=== PATIENT | male | born 1955 | race Caucasian/White ===

== ENCOUNTER 2016-10-18 16:09 | Inpatient (IN) | payer OTHER ==
[~2016-10-18] VITALS: Ht 172.7 cm; Wt 100.7 kg
--- NOTE | ~2016-10-18 | WRIGHTHP ---
[place], [place] PATIENT HISTORY AND PHYSICAL EXAM NAME: EMILY LOWE MERGED WITH [facility] #: [id number] UNIT #: [id number] ROOM: [place] [address] DOCTOR: KARO JARAMILLO DO BIRTHDATE: [birth year] DOS: 10/18/2016 PRIMARY CARE PHYSICIAN: Dr. Zulma Sherwood. The patient was seen and evaluated with the resident on 10/19/2016. Please see the resident's note for further details. ASSESSMENT: 1. Acute alcohol intoxication. 2. Alcohol dependence. 3. Fall with closed head injury. 4. Recent diagnosis of subarachnoid hemorrhage in 08/2016. 5. History of cirrhosis secondary to alcohol. 6. Diabetes mellitus type 2. 7. History of hepatitis C. 8. Chronic obstructive pulmonary disease. 9. Tobacco abuse. 10. History of esophageal varices. 11. Echocardiogram in April 2016 measured a normal ejection fraction. PLAN: The patient is no longer intoxicated. He is not confused or has any other signs of delirium tremens. He will be discharged today. He is to follow up with Dr. Sherwood. KARO JARAMILLO DO CM:HISPHYS:PATIENT HISTORY AND PHYSICAL EXAMINATION [id number] KARO JARAMILLO DO 10/19/16 1528 interface
[~2016-10-18 16:09] MED LIST: 'PARAFON FORTE500 M1 PO; ALBUTEROL0.09 MG/A2 IH; ALBUTEROL2.5 MG/0.5 INH; ALDACTONE50 M1 PO; ALDACTONE50 MG PO; ALLERGY RELIEF10 M1 PO; AMBIEN10 M1 PO; AMBIEN10 MG PO; AMOXICILLIN500 MG PO; ANTIVERT/2525 MG PO; ATIVAN1 MG PO; AUGMENTIN 875875 MG PO; AVELOX400 MG PO; BUMETANIDE1 MG PO; CHLORDIAZEPOXID25 M1 PO; CLARITIN10 MG PO; FOLIC ACID1 MG PO; INDERAL10 MG PO; INDERAL40 MG PO; LACTULOSE20 GM/30 M PO; LASIX40 MG PO; MEDROL DOSEPAK4 MG PO; MOTRIN800 MG PO; NATURE'S BLEND F1 MG PO; NEXIUM40 MG PO; POTASSIUM CHLO20 ME3 PO; POTASSIUM20 MEQ PO; PRILOSEC20 MG PO; PROPRANOLOL HCL10 MG PO; PROTONIX40 MG PO; QVAR0.08 MG/AC INH; THERA TABS1 TAB PO; TOBRADEX 0.1%-0.5 ML OPH; TORADOL10 MG PO; TYLENOL325 M1 PO; VENTOLIN H0.09 MG/AC INH; VICODIN ES 7501 TAB; VITAMIN B-11 TAB PO; ZITHROMAX Z PA250 MG PO
[2016-10-18 16:14] VITALS: BP 151/95
[2016-10-18 17:03] LABS: BASO # 0.1 10*3/uL (0.0-0.1); EOS # 0.1 10*3/uL (0.0-0.4); EOS % 2.5 % (1.0-4.0); HEMATOCRIT 37.4 % (42.0-52.0); HEMOGLOBIN 12.9 g/dl (14.0-18.0); MEAN CELL VOLUME 102.2 fl (80.0-94.0); MEAN CORPUSCULAR HGB 35.2 pg (27.0-31.0); MEAN CORPUSCULAR HGB CONC 34.5 g/dl (33.0-37.0); MEAN PLATELET VOLUME 10.7 fl (9.6-12.3); MONO # 0.7 10*3/uL (0.1-1.0); MONO % 13.6 % (3.0-9.0); NEUT # 3.2 10*3/uL (2.3-7.9); NEUT % 62.7 % (47.0-73.0); PLATELET COUNT AUTOMATED 108 10*3/uL (130-400); RED BLOOD COUNT 3.66 10*6/uL (4.50-5.90); RED CELL DISTRI WIDTH 14.7 % (0-14.5); WHITE BLOOD COUNT 5.1 10*3/uL (4.8-10.8)
[2016-10-18 17:16] LABS: BUN 5 mg/dl (7-24); CARBON DIOXIDE 25 mmol/L (21-32); CHLORIDE 109 mmol/L (98-107); EST GLOM FILT AFRICAN AMERICAN > 60 ml/min; GLUCOSE 136 mg/dL (65-99); POTASSIUM 3.6 mmol/L (3.5-5.1); SODIUM 143 mmol/L (136-145)
[2016-10-18 17:20] LABS: BILIRUBIN NEGATIVE (NEGATIVE); BLOOD 1+ (NEGATIVE); CLARITY SL CLOUDY (CLEAR); COLOR YELLOW (YELLOW); GLUCOSE NEGATIVE (NEGATIVE); KETONE NEGATIVE (NEGATIVE); LEUKO ESTERASE NEGATIVE (NEGATIVE); NITRITE NEGATIVE (NEGATIVE); PROTEIN TRACE (NEGATIVE); SPECIFIC GRAVITY <= 1.005 (1.005-1.030); UROBILINOGEN 0.2 E.U./dl (0.2-1.0)
[2016-10-18 17:26] LABS: BACTERIA 1+; EPITHELIAL CELLS 0-2; URINE REFLEX COMMENT YES (NO); WBC 0-2 wbc/hpf (0-5)
[2016-10-18 17:28] LABS: URINE AMPHETAMINES < 1000 (1000ng/ml); URINE BARBITURATES < 200 (200ng/ml); URINE COCAINE < 300 (300ng/ml)
[2016-10-18 20:30] VITALS: BP 150/76
[2016-10-18] MEDS ORDERED: METFORMIN500 MG PO (20:36)
[2016-10-18] MEDS ORDERED: DILANTIN100 MG PO (20:38)
[2016-10-19] VITALS: BP 138/82
[2016-10-19 04:00] VITALS: BP 130/72
[2016-10-19 05:56] LABS: ALBUMIN 2.4 gm/dl (3.1-4.5); ALKALINE PHOSPHATASE 197 U/L (45-117); BILIRUBIN, TOTAL 1.7 mg/dl (0.2-1.0); BUN 4 mg/dl (7-24); CARBON DIOXIDE 26 mmol/L (21-32); CHLORIDE 112 mmol/L (98-107); CHOLESTEROL 85 mg/dL (<200); EST GLOM FILT AFRICAN AMERICAN > 60 ml/min; FREE T4 0.86 ng/dl (0.76-1.46); GLUCOSE 96 mg/dL (65-99); HDL CHOLESTEROL 35 mg/dl (40-60); LDL CHOLESTEROL 27 mg/dL (9-159); MAGNESIUM 1.8 mg/dL (1.5-2.1); PHOSPHOROUS 3.1 mg/dL (2.5-4.9); POTASSIUM 3.9 mmol/L (3.5-5.1); SGOT/AST 176 IU/L (3-35); SGPT/ALT 56 U/L (12-78); SODIUM 147 mmol/L (136-145); TRIGLYCERIDES 115 mg/dl (<150); VLDL CHOLESTEROL 23 mg/dL (6-40)
[2016-10-19 06:19] LABS: BASO % 1.4 % (0.0-1.0); EOS # 0.1 10*3/uL (0.0-0.4); EOS % 3.8 % (1.0-4.0); HEMATOCRIT 34.8 % (42.0-52.0); HEMOGLOBIN 11.8 g/dl (14.0-18.0); LYMPH # 0.5 10*3/uL (1.3-4.4); LYMPH % 23.1 % (27.0-41.0); MEAN CELL VOLUME 103.3 fl (80.0-94.0); MEAN CORPUSCULAR HGB CONC 33.9 g/dl (33.0-37.0); MEAN PLATELET VOLUME 11.1 fl (9.6-12.3); MONO # 0.4 10*3/uL (0.1-1.0); MONO % 18.9 % (3.0-9.0); NEUT # 1.1 10*3/uL (2.3-7.9); NEUT % 52.8 % (47.0-73.0); RED BLOOD COUNT 3.37 10*6/uL (4.50-5.90); RED CELL DISTRI WIDTH 14.7 % (0-14.5); WHITE BLOOD COUNT 2.1 10*3/uL (4.8-10.8)
[2016-10-19 06:23] LABS: HEMOGLOBIN A1c 4.8 % (4.8-5.6); PLATELET COUNT AUTOMATED 67 10*3/uL (130-400)
[2016-10-19 06:29] LABS: INTERNATIONAL NORM RATIO 1.3 (2.0-3.5); PROTHROMBIN TIME 13.5 SECONDS (9.0-12.4)
[2016-10-19 07:12] LABS: FOLIC ACID 14.8 ng/mL (>5.38); VITAMIN D, 25-HYDROXY 31.1 ng/mL (30-100)
[2016-10-19 08:00] VITALS: BP 137/66
== END 2016-10-19 12:05 | disposition home or self-care (01) | DRG 896 ==
LOC: ED 16:09 → EDHOLD 18:56 → ICCU 18:56 → 5E 19:28 → ICCU 20:07
PROVIDERS: Emergency Medicine; Internal Medicine
DX: F10.220 Alcohol dependence with intoxication, uncomplicated (principal); E43 Unspecified severe protein-calorie malnutrition; I50.32 Chronic diastolic (congestive) heart failure; K70.31 Alcoholic cirrhosis of liver with ascites; S09.90XA Unspecified injury of head, initial encounter; J44.9 Chronic obstructive pulmonary disease, unspecified; E11.65 Type 2 diabetes mellitus with hyperglycemia; G47.00 Insomnia, unspecified; D53.9 Nutritional anemia, unspecified; D72.810 Lymphocytopenia; F17.200 Nicotine dependence, unspecified, uncomplicated; E66.09 Other obesity due to excess calories; R29.6 Repeated falls; Y90.9 Presence of alcohol in blood, level not specified; W18.39XA Other fall on same level, initial encounter; Y93.89 Activity, other specified; Y92.89 Other specified places as the place of occurrence of the external cause; Y99.8 Other external cause status; Z68.33 Body mass index [BMI] 33.0-33.9, adult

== ENCOUNTER → 2016-11-14 | Outpatient (CLI) | payer OTHER ==
[~2016-11-14] MED LIST changes: +DILANTIN100 MG PO; +METFORMIN500 MG PO
[2016-11-14 12:03] LABS: BASO % 0.8 % (0.0-1.0); EOS # 0.1 10*3/uL (0.0-0.4); EOS % 1.6 % (1.0-4.0); HEMATOCRIT 38.1 % (42.0-52.0); HEMOGLOBIN 13.2 g/dl (14.0-18.0); LYMPH # 0.7 10*3/uL (1.3-4.4); LYMPH % 13.5 % (27.0-41.0); MEAN CELL VOLUME 102.7 fl (80.0-94.0); MEAN CORPUSCULAR HGB 35.6 pg (27.0-31.0); MEAN CORPUSCULAR HGB CONC 34.6 g/dl (33.0-37.0); MEAN PLATELET VOLUME 10.7 fl (9.6-12.3); MONO # 0.6 10*3/uL (0.1-1.0); MONO % 12.5 % (3.0-9.0); NEUT # 3.5 10*3/uL (2.3-7.9); NEUT % 71.4 % (47.0-73.0); PLATELET COUNT AUTOMATED 126 10*3/uL (130-400); RED BLOOD COUNT 3.71 10*6/uL (4.50-5.90); RED CELL DISTRI WIDTH 14.4 % (0-14.5); WHITE BLOOD COUNT 4.9 10*3/uL (4.8-10.8)
[2016-11-14 12:35] LABS: CHLORIDE 109 mmol/L (98-107); POTASSIUM 3.9 mmol/L (3.5-5.1); SODIUM 141 mmol/L (136-145)
[2016-11-14 12:40] LABS: INTERNATIONAL NORM RATIO 1.4 (2.0-3.5); PROTHROMBIN TIME 14.9 SECONDS (9.0-12.4)
[2016-11-14 12:43] LABS: ALBUMIN 2.6 gm/dl (3.1-4.5); ALKALINE PHOSPHATASE 190 U/L (45-117); BILIRUBIN, TOTAL 2.2 mg/dl (0.2-1.0); BUN 11 mg/dl (7-24); CARBON DIOXIDE 24 mmol/L (21-32); EST GLOM FILT AFRICAN AMERICAN > 60 ml/min; GLUCOSE 133 mg/dL (65-99); SGOT/AST 61 IU/L (3-35); SGPT/ALT 26 U/L (12-78); TOTAL PROTEIN 6.8 gm/dL (6.4-8.2)
== END | disposition home or self-care (01) ==
LOC: LAB 11:38
DX: C22.0 Liver cell carcinoma (principal)

== ENCOUNTER → 2016-12-21 | Outpatient (CLI) | payer OTHER ==
[2016-12-21 13:02] LABS: BASO % 0.7 % (0.0-1.0); EOS # 0.1 10*3/uL (0.0-0.4); EOS % 1.3 % (1.0-4.0); LYMPH # 0.9 10*3/uL (1.3-4.4); LYMPH % 15.7 % (27.0-41.0); MEAN CORPUSCULAR HGB 35.2 pg (27.0-31.0); MEAN CORPUSCULAR HGB CONC 34.1 g/dl (33.0-37.0); MEAN PLATELET VOLUME 10.9 fl (9.6-12.3); MONO # 0.6 10*3/uL (0.1-1.0); MONO % 10.7 % (3.0-9.0); NEUT # 3.9 10*3/uL (2.3-7.9); NEUT % 71.4 % (47.0-73.0); PLATELET COUNT AUTOMATED 105 10*3/uL (130-400); RED BLOOD COUNT 3.98 10*6/uL (4.50-5.90); RED CELL DISTRI WIDTH 15.3 % (0-14.5); WHITE BLOOD COUNT 5.5 10*3/uL (4.8-10.8)
[2016-12-21 13:30] LABS: INTERNATIONAL NORM RATIO 1.4 (2.0-3.5); PROTHROMBIN TIME 15.6 SECONDS (9.0-12.4)
[2016-12-21 13:32] LABS: ALBUMIN 2.8 gm/dl (3.1-4.5); BILIRUBIN, TOTAL 3.5 mg/dl (0.2-1.0); BUN 10 mg/dl (7-24); CARBON DIOXIDE 27 mmol/L (21-32); CHLORIDE 103 mmol/L (98-107); EST GLOM FILT AFRICAN AMERICAN > 60 ml/min; GLUCOSE 129 mg/dL (65-99); POTASSIUM 4.3 mmol/L (3.5-5.1); SGOT/AST 82 IU/L (3-35); SGPT/ALT 38 U/L (12-78); SODIUM 140 mmol/L (136-145); TOTAL PROTEIN 7.4 gm/dL (6.4-8.2)
[2016-12-21 13:42] LABS: ALKALINE PHOSPHATASE 216 U/L (45-117)
== END | disposition home or self-care (01) ==
LOC: LAB 12:33
PROVIDERS: Nurse Practitioner Adult Health
DX: C22.0 Liver cell carcinoma (principal)

== ENCOUNTER 2017-02-07 11:58 | Inpatient (IN) | payer OTHER ==
[~2017-02-07] VITALS: Ht 170.1 cm; Wt 92.8 kg
--- NOTE | ~2017-02-07 | PR ---
[place], [place] PROGRESS NOTE NAME: EMILY LOWE UNIT #: [id number] ROOM: 503 DOCTOR: LUIS ALBERTO GARIBAY MD BIRTHDATE: [birth year] DOS: 02/08/2017 SUBJECTIVE: The patient was seen in the Cardiology Department just prior to his stress test. He is a 61-year-old man who presented to the hospital with chest pressure that developed about a day and a half prior to his admission and has persisted since admission. The pain has pleuritic characteristics, was not associated with any acute EKG changes or elevation in troponin. The patient does have a history of DVT with pulmonary emboli in the distant past. Recently, he has been noted to have cirrhosis with ascites and also has liver cancer, which is being evaluated at the [facility]. This has not yet been treated. PHYSICAL EXAMINATION: VITAL SIGNS: Today, his pulse is 78 and regular, blood pressure is 120/70, temperature is 99.4. He weighs 92.0.8 kilograms with a body mass index of 32.1. HEENT: Normocephalic, atraumatic. Extraocular muscles are intact. Sclerae are clear. Pupils are equal, round and reactive to light. The oral mucosa is moist. Tongue is midline. NECK: Supple. He has no jugular distention. Carotids are full. LUNGS: Respirations are unlabored. Chest is clear to auscultation and percussion. HEART: Has regular rhythm with an S4 gallop. No S3. ABDOMEN: Distended with a slight fluid wave. EXTREMITIES: Showed no edema. There were no palpable cords or Homans sign. IMPRESSION: 1. Atypical chest pain, most likely this is noncardiac in origin. 2. History of cirrhosis from alcohol abuse. The patient has been abstinent of alcohol for about a month. 3. History of deep venous thrombosis in the distant past with pulmonary emboli. 4. History of liver cancer. PLAN: We will proceed with pharmacologic stress test to make sure that he does not have coronary artery disease as a cause for his chest pain. Further evaluation of his chest pain and ascites will be per his primary physician's assuming his stress test is normal. I thank the hospitalist physicians for asking our advice regarding his care. [place], [place] PROGRESS NOTE NAME: EMILY LOWE UNIT #: [id number] ROOM: 503 DOCTOR: LUIS ALBERTO GARIBAY MD BIRTHDATE: [birth year] LUIS ALBERTO GARIBAY MD CM:PNTRANS [id number] LUIS ALBERTO GARIBAY MD 02/09/17 0103 interface
[2017-02-07 12:10] VITALS: BP 130/84
[2017-02-07 12:28] LABS: BASO # 0.1 10*3/uL (0.0-0.1); BASO % 0.6 % (0.0-1.0); EOS % 0.1 % (1.0-4.0); HEMATOCRIT 37.2 % (42.0-52.0); HEMOGLOBIN 12.5 g/dl (14.0-18.0); LYMPH # 0.5 10*3/uL (1.3-4.4); LYMPH % 6.8 % (27.0-41.0); MEAN CELL VOLUME 104.5 fl (80.0-94.0); MEAN CORPUSCULAR HGB 35.1 pg (27.0-31.0); MEAN CORPUSCULAR HGB CONC 33.6 g/dl (33.0-37.0); MEAN PLATELET VOLUME 11.2 fl (9.6-12.3); MONO % 12.4 % (3.0-9.0); NEUT # 6.3 10*3/uL (2.3-7.9); NEUT % 79.5 % (47.0-73.0); PLATELET COUNT AUTOMATED 104 10*3/uL (130-400); RED BLOOD COUNT 3.56 10*6/uL (4.50-5.90); RED CELL DISTRI WIDTH 17.8 % (0-14.5)
[2017-02-07 12:37] LABS: ACT PARTIAL THROMBO TIME 30.5 SECONDS (20.8-31.5); INTERNATIONAL NORM RATIO 1.7 (2.0-3.5)
[2017-02-07 12:45] LABS: ALBUMIN 2.3 gm/dl (3.1-4.5); ALKALINE PHOSPHATASE 171 U/L (45-117); BUN 9 mg/dl (7-24); CHLORIDE 99 mmol/L (98-107); CREATININE 1.16 mg/dL (0.70-1.30); MAGNESIUM 1.9 mg/dL (1.5-2.1); POTASSIUM 4.1 mmol/L (3.5-5.1); SGOT/AST 71 IU/L (3-35); SGPT/ALT 28 U/L (12-78); SODIUM 132 mmol/L (136-145); TOTAL PROTEIN 6.9 gm/dL (6.4-8.2)
[2017-02-07 12:47] LABS: TROPONIN I < 0.015 ng/ml (<0.045)
[2017-02-07 14:17] VITALS: BP 126/66
[2017-02-07 15:20] VITALS: BP 129/76
[2017-02-07 16:00] VITALS: BP 144/71
[2017-02-07 16:45] VITALS: BP 144/71
[2017-02-07] MEDS ORDERED: LASIX20 MG PO (17:39)
[2017-02-07 20:00] VITALS: BP 126/60
[2017-02-08] VITALS: BP 130/69
[2017-02-08 06:12] LABS: BASO % 0.5 % (0.0-1.0); EOS # 0.1 10*3/uL (0.0-0.4); EOS % 1.1 % (1.0-4.0); HEMATOCRIT 35.2 % (42.0-52.0); HEMOGLOBIN 11.8 g/dl (14.0-18.0); LYMPH # 0.5 10*3/uL (1.3-4.4); LYMPH % 9.4 % (27.0-41.0); MEAN CELL VOLUME 104.1 fl (80.0-94.0); MEAN CORPUSCULAR HGB 34.9 pg (27.0-31.0); MEAN CORPUSCULAR HGB CONC 33.5 g/dl (33.0-37.0); MEAN PLATELET VOLUME 11.8 fl (9.6-12.3); MONO # 0.9 10*3/uL (0.1-1.0); MONO % 15.5 % (3.0-9.0); NEUT # 4.1 10*3/uL (2.3-7.9); PLATELET COUNT AUTOMATED 87 10*3/uL (130-400); RED BLOOD COUNT 3.38 10*6/uL (4.50-5.90); RED CELL DISTRI WIDTH 17.6 % (0-14.5); WHITE BLOOD COUNT 5.6 10*3/uL (4.8-10.8)
[2017-02-08 06:39] LABS: ALBUMIN 2.1 gm/dl (3.1-4.5); BUN 8 mg/dl (7-24); CHLORIDE 103 mmol/L (98-107); CREATININE 0.85 mg/dL (0.70-1.30); MAGNESIUM 1.7 mg/dL (1.5-2.1); PHOSPHOROUS 1.8 mg/dL (2.5-4.9); POTASSIUM 4.1 mmol/L (3.5-5.1); SGOT/AST 54 IU/L (3-35); SGPT/ALT 23 U/L (12-78); SODIUM 134 mmol/L (136-145); TOTAL PROTEIN 6.2 gm/dL (6.4-8.2)
[2017-02-08 06:41] LABS: ACT PARTIAL THROMBO TIME 31.3 SECONDS (20.8-31.5); INTERNATIONAL NORM RATIO 1.6 (2.0-3.5)
[2017-02-08 06:49] LABS: ALKALINE PHOSPHATASE 156 U/L (45-117); THYROID STIM HORMONE (HS) 0.857 uIU/ml (0.358-4.75)
[2017-02-08 07:38] LABS: VITAMIN D, 25-HYDROXY 36.5 ng/mL (30-100)
[2017-02-08 08:00] VITALS: BP 116/62; BP 120/70
[2017-02-08 12:00] VITALS: BP 112/60
[2017-02-08 16:00] VITALS: BP 96/50
[2017-02-08] MEDS ORDERED: K-PHOS500 MG PO (16:46)
== END 2017-02-08 16:29 | disposition home or self-care (01) | DRG 193 ==
LOC: ED 11:58 → EDHOLD 13:14 → 5E 13:14 → EDHOLD 13:44 → 5E 15:29
PROVIDERS: Internal Medicine; ADMIT Emergency Medicine
DX: R09.1 Pleurisy (principal); E43 Unspecified severe protein-calorie malnutrition; I50.32 Chronic diastolic (congestive) heart failure; D68.9 Coagulation defect, unspecified; C22.9 Malignant neoplasm of liver, not specified as primary or secondary; E87.1 Hypo-osmolality and hyponatremia; D69.6 Thrombocytopenia, unspecified; E11.65 Type 2 diabetes mellitus with hyperglycemia; R07.89 Other chest pain; F41.9 Anxiety disorder, unspecified; K21.9 Gastro-esophageal reflux disease without esophagitis; J44.9 Chronic obstructive pulmonary disease, unspecified; K70.31 Alcoholic cirrhosis of liver with ascites; F10.20 Alcohol dependence, uncomplicated; B18.2 Chronic viral hepatitis C; D53.9 Nutritional anemia, unspecified; G47.00 Insomnia, unspecified; Z87.891 Personal history of nicotine dependence; Z79.899 Other long term (current) drug therapy; Z86.718 Personal history of other venous thrombosis and embolism; Z86.711 Personal history of pulmonary embolism; Z88.8 Allergy status to other drugs, medicaments and biological substances; Z82.49 Family history of ischemic heart disease and other diseases of the circulatory system; Z80.8 Family history of malignant neoplasm of other organs or systems; Z83.3 Family history of diabetes mellitus; Z81.1 Family history of alcohol abuse and dependence

== ENCOUNTER → 2017-03-28 | Outpatient (CLI) | payer OTHER ==
[~2017-03-28] MED LIST changes: +K-PHOS500 MG PO; +LASIX20 MG PO
[2017-03-28 13:05] LABS: ACT PARTIAL THROMBO TIME 29.8 SECONDS (20.8-31.5); INTERNATIONAL NORM RATIO 1.5 (2.0-3.5)
[2017-03-28 14:55] LABS: BODY FLUID WBC 81 /uL
[2017-03-28 15:47] LABS: BF LYMPHOCYTES 21 %; BF MACROPHAGES 43 %; BF MESOTHELIALS 25 %; BF NEUTROPHILS 11 %
== END | disposition home or self-care (01) ==
LOC: LAB 00:47 → EDSTATUS 13:00
PROVIDERS: Internal Medicine
DX: C22.0 Liver cell carcinoma (principal); K70.31 Alcoholic cirrhosis of liver with ascites; B18.2 Chronic viral hepatitis C; E11.9 Type 2 diabetes mellitus without complications; K21.9 Gastro-esophageal reflux disease without esophagitis; F51.04 Psychophysiologic insomnia; E53.8 Deficiency of other specified B group vitamins

== ENCOUNTER → 2017-05-06 | Outpatient (CLI) | payer OTHER | END | disposition home or self-care (01) | LOC: EDSTATUS 11:00 | DX: R07.89 Other chest pain (principal); R18.8 Other ascites; J44.9 Chronic obstructive pulmonary disease, unspecified; Z87.09 Personal history of other diseases of the respiratory system; Z87.19 Personal history of other diseases of the digestive system; Z87.891 Personal history of nicotine dependence ==

== ENCOUNTER → 2017-05-16 | Outpatient (CLI) | payer OTHER ==
[2017-05-16 12:45] LABS: ACT PARTIAL THROMBO TIME 31.5 SECONDS (20.8-31.5); INTERNATIONAL NORM RATIO 1.5 (2.0-3.5)
== END | disposition home or self-care (01) ==
LOC: LAB 01:51 → EDSTATUS 13:00
PROVIDERS: Internal Medicine
DX: K70.31 Alcoholic cirrhosis of liver with ascites (principal)

== ENCOUNTER → 2017-05-24 | Outpatient (CLI) | payer OTHER ==
[~2017-05-24] MED LIST changes: +AMBIEN5 MG PO; +PRILOSEC20 M1 PO; +[UNRECOGNIZED DRUG - OTHER]
== END | disposition home or self-care (01) ==
LOC: EDSTATUS 11:00
DX: K70.31 Alcoholic cirrhosis of liver with ascites (principal)

== ENCOUNTER → 2017-05-31 | Day surgery (SDC) | payer OTHER ==
[2017-05-31 11:56] VITALS: BP 132/88
== END | disposition home or self-care (01) ==
LOC: EDSTATUS 11:00
DX: R18.8 Other ascites (principal); J44.9 Chronic obstructive pulmonary disease, unspecified; K21.9 Gastro-esophageal reflux disease without esophagitis; Z86.73 Personal history of transient ischemic attack (TIA), and cerebral infarction without residual deficits; G47.30 Sleep apnea, unspecified; Z80.9 Family history of malignant neoplasm, unspecified; Z82.49 Family history of ischemic heart disease and other diseases of the circulatory system; F17.210 Nicotine dependence, cigarettes, uncomplicated

== ENCOUNTER → 2017-06-07 | Day surgery (SDC) | payer OTHER | DX: R18.8 Other ascites (principal) ==

== ENCOUNTER → 2017-06-21 | Outpatient (CLI) | payer OTHER ==
[2017-06-21 11:54] LABS: ACT PARTIAL THROMBO TIME 29.1 SECONDS (20.8-31.5); INTERNATIONAL NORM RATIO 1.4 (2.0-3.5)
[2017-06-21 13:15] VITALS: BP 104/71
== END | disposition home or self-care (01) ==
LOC: EDSTATUS 11:00
PROVIDERS: Internal Medicine
DX: K70.31 Alcoholic cirrhosis of liver with ascites (principal)

== ENCOUNTER 2017-06-28 11:07 | Emergency (ER) | payer OTHER ==
[~2017-06-28] VITALS: Ht 170.1 cm; Wt 83.0 kg
[2017-06-28 11:51] LABS: HEMATOCRIT 31.6 % (42.0-52.0); HEMOGLOBIN 11.1 g/dl (14.0-18.0); MEAN CELL VOLUME 103.3 fl (80.0-94.0); MEAN CORPUSCULAR HGB 36.3 pg (27.0-31.0); MEAN CORPUSCULAR HGB CONC 35.1 g/dl (33.0-37.0); MEAN PLATELET VOLUME 10.6 fl (9.6-12.3); PLATELET COUNT AUTOMATED 108 10*3/uL (130-400); RED BLOOD COUNT 3.06 10*6/uL (4.50-5.90); RED CELL DISTRI WIDTH 15.6 % (0-14.5); WHITE BLOOD COUNT 8.9 10*3/uL (4.8-10.8)
[2017-06-28 12:09] LABS: ALBUMIN 1.8 gm/dl (3.1-4.5); ALKALINE PHOSPHATASE 199 U/L (45-117); BUN 12 mg/dl (7-24); CHLORIDE 96 mmol/L (98-107); CREATININE 1.05 mg/dL (0.70-1.30); LIPASE 302 U/L (73-393); POTASSIUM 5.3 mmol/L (3.5-5.1); SGOT/AST 214 IU/L (3-35); SGPT/ALT 89 U/L (12-78); SODIUM 123 mmol/L (136-145); TOTAL PROTEIN 6.5 gm/dL (6.4-8.2)
[2017-06-28 12:10] LABS: TOTAL CELLS COUNTED 100 #CELLS
[2017-06-28 12:11] LABS: BURR CELLS MODERATE; PLATELET SUFFICIENCY LOW (NORMAL)
== END 2017-06-28 14:08 | disposition left against medical advice (07) ==
LOC: ED 11:07
PROVIDERS: Nurse Practitioner Family
DX: R53.1 Weakness (principal); J44.9 Chronic obstructive pulmonary disease, unspecified; E11.9 Type 2 diabetes mellitus without complications; I50.9 Heart failure, unspecified; F17.200 Nicotine dependence, unspecified, uncomplicated; Z88.8 Allergy status to other drugs, medicaments and biological substances; Z79.899 Other long term (current) drug therapy

== ENCOUNTER → 2017-06-28 | Outpatient (CLI) | payer OTHER ==
[2017-06-28 15:03] VITALS: BP 117/68
[2017-06-28 15:40] VITALS: BP 144/63
[2017-06-28 16:00] VITALS: BP 118/57
== END | disposition home or self-care (01) ==
LOC: EDSTATUS 11:00
DX: K70.31 Alcoholic cirrhosis of liver with ascites (principal)

== ENCOUNTER → 2017-07-05 | Outpatient (CLI) | payer OTHER ==
[2017-07-05 11:23] LABS: INTERNATIONAL NORM RATIO 1.5 (2.0-3.5)
[2017-07-05 13:21] VITALS: BP 107/63
== END | disposition home or self-care (01) ==
LOC: EDSTATUS 11:00
PROVIDERS: Internal Medicine
DX: K70.31 Alcoholic cirrhosis of liver with ascites (principal)

== ENCOUNTER → 2017-07-12 | Outpatient (CLI) | payer OTHER | END | disposition home or self-care (01) | LOC: US 11:00 | DX: K70.31 Alcoholic cirrhosis of liver with ascites (principal) ==

== ENCOUNTER → 2017-07-19 | Outpatient (CLI) | payer OTHER | END | disposition home or self-care (01) | LOC: EDSTATUS 11:00 | DX: K70.31 Alcoholic cirrhosis of liver with ascites (principal) ==